=== PATIENT | male | born 1990 | race Caucasian/White ===

== ENCOUNTER 2018-03-06 15:55 | Emergency (ER) | payer MEDICAID, OTHER ==
--- NOTE | 2018-03-06 16:07 | EDPHY ---
H & P Stated Complaint: HI, ETOH Source: Patient, Family (Friend at bedside) Exam Limitations: Intoxication - Personal History Current Tetanus/Diphtheria Vaccine: Yes Current Tetanus Diphtheria and Acellular Pertussis (TDAP): Yes Tetanus Vaccine Date: 2014 - Medical/Surgical History Hx Asthma: No Hx Chronic Respiratory Disease: No Hx Diabetes: No Hx Cardiac Disease: No Hx Renal Disease: No Hx Cirrhosis: No Hx Alcoholism: Yes Hx HIV/AIDS: No Hx Splenectomy or Spleen Trauma: No Other PMH: schizoeffective, ETOH, - Social History Smoking Status: Heavy smoker Time Seen by Provider: 03/06/18 16:07 HPI/ROS: HPI: This is a 28-year-old male who presents with Chief Complaint: Homicidal ideation, alcoholism Location: psych Quality: Homicidal ideation Duration: Today Signs and Symptoms: + auditory hallucinations, no visual hallucinations, no suicidal ideation with a plan, + homicidal ideation, + paranoia Timing: Acute on chronic Severity: Moderate to severe Context: Patient has a history of schizoaffective disorder, alcoholism presents accompanied by his friend who is concerned about his aggressive behavior. He reports that he has been drinking "a lot of alcohol today." He reports to me that he "wants to kill everyone and take people out of this world. " He reports that he has felt like this for several days. He reports that everyone is "a piece of shit." He is originally from [place]. He does not take his psychiatric medications as prescribed as "they make me feel like shit. " He has had multiple admissions to [facility] last one being 1- 2 weeks ago. Patient reports that he feels that people are critical of him and that they persecute him and that he is not "worth anything." He does report that he hears voices telling him to harm other people and to kill other people. Friend at bedside reports that she is extremely concerned with patient and does not feel safe taking him at this time. Modifying Factors: none Comment: ROS: see HPI Constitutional: No fever, no chills, no weight loss Eyes: No blurred vision Respiratory: No shortness of breath, no cough Cardiovascular: No chest pain Gastrointestinal: No nausea, no vomiting, no diarrhea Genitourinary: No dysuria Extremities: No myalgias Neurologic: No weakness, no numbness Skin: No rashes Hematologic: No bruising, no bleeding MEDICAL/SURGICAL/SOCIAL HISTORY: Medical history: Schizoaffective, alcoholism. Surgical history: Mandible surgery for broken jaw secondary to trauma Social history: Heavy smoker. Family history noncontributory. CONSTITUTIONAL: Intoxicated forceful untidy adult white male, awake and alert, no obvious distress HEENT: Atraumatic and normocephalic, PERRL, EOMI. Nares patent. Tympanic membranes clear. Oropharynx clear, poor dentition. Airway patent. No lymphadenopathy. No meningismus. Cardiovascular: Normal S1/S2, mild tachycardia, regular rhythm, without murmur rub or gallop. PULMONARY/CHEST: Symmetrical and nontender. Clear to auscultation bilaterally. Good air movement. No accessory muscle usage. ABDOMEN: Soft, nondistended, nontender, no rebound, no guarding, no peritoneal signs, no masses or organomegaly. No CVAT. EXTREMITIES: 2/2 pulses, strength 5/5, no deformities, no clubbing, no cyanosis or edema. NEUROLOGICAL: no focal neuro deficits. GCS 15. SKIN: Warm and dry, no erythema. no rash. Good capillary refill. PSYCH: Poor eye contact,+ flight of ideas, relatively organized organized thought process, poor insight and judgment,+ auditory hallucinations, no visual hallucinations, no suicidal ideation with a plan, + homicidal ideation, + paranoia (Tae,Terra) Constitutional: Initial Vital Signs Temperature (C) 36.6 C 03/06/18 15:59 Heart Rate 103 H 03/06/18 15:59 Respiratory Rate 16 03/06/18 15:59 Blood Pressure 108/85 H 03/06/18 15:59 O2 Sat (%) 96 03/06/18 15:59 O2 Delivery Mode Room Air Allergies/Adverse Reactions: Sulfa (Sulfonamide Antibiotics) Allergy (Verified 03/06/18 16:24) Home Medications: Medication Instructions Recorded LaMICtal 03/06/18 traZODone 03/06/18 Medical Decision Making ED Course/Re-evaluation: 1615: Placed on M1 hold as the patient is gravely disabled and homicidal. Labs and UDS ordered. Given Zyprexa 5 mg. Breathalyzer upon arrival was 248 at 1600. 1705: Labs reviewed and grossly unremarkable. Urine drug screen is negative. Ethanol level is 330. 1830: Reassessed patient who is sleeping calmly. 0010: End of shift. Signed over to Dr. Steel pending mental health evaluation in morning and final disposition. This patient was seen under the supervision of my secondary supervising physician. I evaluated care for this patient independently. Discussed this patient with Dr. Martinez. (Jazmin Strong) 0630: No acute events overnight patient has been resting and sleeping. Receive Zyprexa and Haldol earlier in the evening. Here with history of schizophrenia, homicidal ideation and alcohol intoxication. Patient will need mental health evaluation this morning. Signed over to . (Chiki Steel ) Differential Diagnosis: Differential diagnosis includes but is not limited to intoxicant use, psychosis , stacy, homicidal ideation, schizoaffective disorder. (Jazmin Strong) Other Provider: Care assumed at 6:45 a.m. With plan for mental health evaluation of this patient with schizoaffective disorder who arrived with homicidal ideation. Initial alcohol level was 330. At 5:15 a.m. Breathalyzer is 0. 1044: Patient had mental health evaluation, recommendation of the admeasurer and Dr. Wilton Maldonado is to vacate the mental health hold and discharge the patient. He is not suicidal homicidal or psychotic at this time. Diagnosis of bipolar 2 disorder was confirmed by the admeasurer by contacting [facility]. (Leodan Wilson) - Data Points Laboratory Results: Laboratory Results 03/06/18 16:20 03/06/18 16:20 Medications Given: Discontinued Medications Olanzapine (Zyprexa Zydis) 5 mg PO EDNOW ONE Stop: 03/06/18 16:26 Last Admin: 03/06/18 16:33 Dose: 5 mg Departure - Departure Disposition: Home, Routine, Self-Care Clinical Impression: Bipolar 2 disorder Alcohol intoxication Qualifiers: Complication of substance-induced condition: uncomplicated Qualified Code(s): F10.920 - Alcohol use, unspecified with intoxication, uncomplicated Condition: Fair Instructions: Bipolar Disorder (ED), Alcohol Intoxication (ED) Referrals: [facility],. [Clinic] - As per Instructions
[2018-03-06] MEDS ORDERED: OLANZapine DISINTEGR 5 MG TAB PO ONE (16:25)
[2018-03-06 16:42] LABS: PLATELET COUNT 273 10^3/uL (150-400)
[2018-03-06] MEDS ORDERED: HALOPERIDOL LACT 5 MG/ML INJ ONE (16:45)
--- NOTE | 2018-03-07 07:15 | ASMTLCPROG ---
Notes Note: Notes: As pt is on M1, obtained collateral from Brian at [facility] who confirmed pt was originally diagnosed with Bipolar II D/O at age 19; has Alcohol Use Disorder, chronic, severe; and PTSD. Prescriber is Genet Martinez MD at [facility]. Reeler Operator is Ligia Mueller. Pt seen by Dr. Martinez on 01/31/18. Home meds include Lamictal 25 mg and Trazodone 50 mg. No follow up appt noted as scheduled. Pt had one prior psych hospitalization in [place] where he is originally from. Pt has baseline of regular suicidal ideation. Date Signed: 03/07/2018 07:14 AM Electronically Signed By:Saurabh Alva
[2018-03-07 10:57] VITALS: BP 121/81
--- NOTE | 2018-03-07 13:04 | ASMTTLCEVL ---
[facility] Evaluation - Basic Information Evaluation Start Date and 03/07/2018 10:00 AM Time Hospital Status Answers: M1 Hold 72-hr M1 Hold Start Date 03/06/2018 04:15 PM and Time Patient statement Notes: My girlfriend brought me here last night. Im feeling much better this morning. Im not feeling suicidal or homicidal. 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 Narrative Notes: Pt is a 25 yo, single, homeless, employed, male, with known history of Bipolar II Disorder; Alcohol Use Disorder, Severe; and PTSD, self-presented to [facility] ED last night on a voluntary basis initially, accompanied by his girlfriend Christopher. Pt was then placed on M1 hold by ED provider which noted: Patient has a history of schizoaffective disorder, presents with homicidal thoughts, aggressive behavior and medication non-compliance. Patient is having command auditory hallucinations that command him to kill people who are critical of him. He is very paranoid. Pts BAL upon arrival was .330 at 1620 hrs. UDS results were negative for all tested substances. Pt was administered Zyprexa Zydis 5 mg PO at 1633 hrs. He then slept throughout the majority of the night. Upon medical clearance and breathalizer level at .0 at 0515, evaluation was conducted. Pt appeared unclean, disheveled and unkempt. He was in good spirits and reported Im feeling much better this morning. Pt denied currently having any hallucinations, denied suicidal/homicidal ideation/intent/plans to harm self/others. He appeared polite, cooperative and lucid in thought content and process. Pt is an open client at [facility], under the psychiatric care of Genet Martinez MD and Ligia Mueller Model Builder. He last saw Dr. Martinez on 01/31/18. Diagnosis History Notes: Bipolar II Disorder; Alcohol Use Disorder, Severe; and PTSD. Prior suicide attempts Notes: Pt denied any past history of suicide attempts. Prior hospitalizations Notes: Pt reported one prior psychiatric hospitalization at [facility] for 3 days when he was 19 yo. He was diagnosed with Bipolar II Disorder at that time. Treatment Responses Notes: Pt has history of continued heavy alcohol use and medication non-compliance. History of violence Notes: Pt denied any past history of violence toward others, however, MHP report indicated pt can become aggressive when intoxicated and/or when not taking his meds. Therapist: Ligia Mueller [facility] Care Coord Psychiatrist: Genet Martinez MD - [facility] Medications (name, dosage, route, freq uency) Notes: Lamictal 25 mg PO TID; Trazodone 50 mg PO HS. Pt stated he has been medication compliant. Allergies/Reaction Notes: Sulfa. Sleep Notes: Pt reported getting adequate amount of sleep when not drinking. Appetite Notes: Reported as good. Medical/Surgical history Notes: Significant for having mandible surgery for a broken jaw secondary to trauma. Substance use history (frequency, intensity, his tory, duration) Notes: Pt reported first trying alcohol at age 15. He reported his drinking became problematic 2 years ago. He reported having 3-4 periods of being sober about a month during times when he had a better job. Currently, pt reported drinking 2 pints of whisky daily. He stated he drank about half that amount yesterday. BAL was .330 at 1620 hrs yesterday. UDS negative for all tested substances. Pt reported having first tried marijuana at age 6. He reported his last use of marijuana was about 3 months ago. He reported he first tried methamphetamine at age 19. He reported his last use of meth was in August 2017. He denied any other illicit substance use history. Family composition Notes: Pt reported that his father is in residential and he does not know about where his mother is or if still living. He reported being an only child. Need for family Answers: No participation in patient's care Family psychiatric/substance abuse history Notes: None reported by pt. Developmental history Notes: Pt reported growing up in [place], [place]. He moved to [place] 2 years ago. Pt denied any childhood history of TBIs, LOC or concussions. He reported that there was emotional abuse by his parents and felt his parents wouldnt emotionally build me up. Pt otherwise denied any childhood history of physical or sexual abuse/trauma. Abuse concerns Answers: Past Marital status/children Notes: Pt is single, never , no dependents. He reported starting to date a new girlfriend named Christopher about 2-3 months ago. Living situation Notes: Pt is homeless. Sexual history/orientation Notes: Active. Heterosexual. Peer support/family strengths Notes: Pt stated that his boss, Omkar Chadwick, and his M[facility] providers are his supports. Education level/history Notes: Pt reported graduating from [employer] in [place], [place]. 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 Notes: None. Legal Notes: Pt reported having a possession arrest 5 years ago. Holiness/Spiritual Notes: Pt stated I believe in God. Leisure Notes: Pt reported he enjoys riding bicycles and fishing. Collateral Notes: Collateral obtained from [facility]. [facility] Evaluation - Mental Status Exam Appearance: Answers: Unclean Unkempt Disheveled Mood: Answers: Euthymic Affect: Answers: Appropriate Calm Cheerful Congruent w/ Mood Behavior: Answers: Appropriate Cooperative Speech: Answers: Relevant Logical Clear Coherent Thought Process: Answers: Organized Oriented Alert Goal Oriented Insight: Answers: Fair Judgement: Answers: Fair Manic Signs/Symptoms Answers: Impulsivity Hallucinations: Answers: None Current Stage of Change Answers: Precontemplation Relapse Pt reported to have Answers: No suicidal/self-injuring ideation/behavior? Pt reported to be making Answers: No suicidal/self-injuring threats? Pt reported to have Answers: No aggression/assault ideation/behavior? Pt reported to be making Answers: No aggression/assault threats? Pt exhibits inability to Answers: No care for self/grave disability? Ideation/behavior is Answers: No chronic? Patient has a specific Answers: No plan? Pt has access to means to Answers: No execute the plan? Ideation involves Answers: No serious/lethal intent? Ideation has Answers: No delusional/hallucinatory content? History of Answers: Yes suicidal/self-injuring ideation, behavior, or threats? History of Answers: Yes aggressive/assaultive ideation, behavior, or threats? History of serious Answers: No physical harm to self/others while in treatment setting? [facility] Evaluation - Suicide/Homicide Risk Suicide Risk Factors: Answers: Alcohol/Heavy Drug Use Bipolar Disorder History of Abuse Impulsivity Inadequate Social Support Lack of Social Support Single Unstable Living Situation Homicide/violence risk Answers: None factors: Current Suicidal Answers: No Ideation? Current Suicidal Ideation Answers: No in the Past 48 Hours? Current Suicidal Ideation Answers: No in the Past Month? Current Suicidal Answers: No Ideation, Worst Ever? Suicide Internal Answers: Absence of Psychosis Protective Factors: Que with Stress Suicide External Answers: Positive Therapeutic Protective Factors: Relationships Ranking of patient's Answers: Low suicidal risk: Ranking of patient's Answers: Low homicidal risk: TLC Evaluation - Wrap-up BDI Total Score: 6 BDI Question #2 Score: 0 BDI Question #9 Score: 0 BSS Total Score: 0 AXIS I Diagnosis (include DSM-V and ICD-10 codes), must also be entered in [employer], which is the source of truth. Notes: BIPOLAR II DISORDER, MODERATE 296.89 (F31.81) ALCOHOL INTOXICATION, WITH USE DISORDER, SEVERE 303.00 (F10.229) POSTTRAUMATIC STRESS DISORDER 309.81 (F43.10) BY HISTORY In consultation with [facility] ED physician, Leodan Wilson MD, he concurred that pt does not appear to meet 27-65 criteria requiring psychiatric hospitalization as pt does not appear to be an imminent risk of harm to self/others/gravely disabled due to a mental illness condition. Dr. Wilson provided verbal order read back vacating M1 hold at 1045 hrs. Evaluation End Date and 03/07/2018 11:15 AM Time (HH:DAVID): Date Signed: 03/07/2018 01:03 PM Electronically Signed By:Saurabh Alva
--- NOTE | 2018-03-07 13:05 | ASMTTCLDSP ---
TLC Discharge Disposition Disposition: Answers: Discharge If Answers: Yes DISCHARGED: Patient/family given suicide hotline info & SAMHSA brochure? Disposition Notes: Notes: Pt stated commitment or ability to keep self safe, denied thoughts of self harm or harm to others. 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 Pt was given local hotline information and SAMHSA brochure After an Attempt and encouraged to follow up with MHP. Discharge Concerns/Recommendations: Notes: In consultation with [facility] ED physician, Leodan Wilson MD, he concurred that pt does not appear to meet 27-65 criteria requiring psychiatric hospitalization as pt does not appear to be an imminent risk of harm to self/others/gravely disabled due to a mental illness condition. Dr. Wilson provided verbal order read back vacating M1 hold at 1045 hrs. Was patient given the Answers: Not applicable Inpatient Behavioral Health Prohibited Belongings List while in the ED? Psychiatrist vacating M1 Leodan Wilson MD Hold: Date and time M1 hold 03/07/2018 10:45 AM vacated (time format is hh:mm): Type of Hold: Answers: M1/72-hour Hold Hold initiated by: Answers: ED Physician Date Signed: 03/07/2018 01:05 PM Electronically Signed By:Saurabh Alva
== END 2018-03-07 10:57 | disposition home or self-care (01) ==
DX: F31.81 Bipolar II disorder (principal); F10.920 Alcohol use, unspecified with intoxication, uncomplicated; F17.200 Nicotine dependence, unspecified, uncomplicated
CPT/HCPCS: 80305; G0480; J1630

== ENCOUNTER 2018-06-04 20:02 | Emergency (ER) | payer MEDICAID, OTHER ==
--- NOTE | 2018-06-04 20:47 | EDPHY ---
H & P Smoking Status: Heavy smoker Time Seen by Provider: 06/04/18 20:35 HPI/ROS: HPI Suicidal and homicidal thoughts. 28-year-old male by private vehicle. He was brought in by his friend. He has a history of schizoaffective disorder. He has been drinking alcohol tonight. He has been making homicidal threats. Stating everybody needs to . He told his friend he was also feeling suicidal. On my evaluation the patient states he has been drinking. When I asked him if he is suicidal or homicidal he just replies "maybe". No history of trauma or assault. ROS: Constitutional: No fever, no chills. No weakness. Eyes: No discharge. No changes in vision. ENT: No sore throat. No nasal congestion or rhinorrhea. Respiratory: No cough. No shortness of breath. Cardiac: No chest pain, no palpitations. Gastrointestinal: No abdominal pain, no vomiting, no diarrhea. Genitourinary: No hematuria. No dysuria or increased frequency with urination. Musculoskeletal: No back pain. No neck pain. No myalgias or arthralgias. Skin: No rashes. Neurological: No headache. No focal weakness or altered sensation. Past medical history: Schizoaffective disorder, alcohol abuse. Social history: Alcohol abuse. Here currently alone. Nonsmoker. Denies IV drugs and street drugs. Physical Exam: General Appearance: Alert, mildly agitated with an aggressive demeanor. This patient is responding to questions appropriately and in full sentences. This patient appears well-hydrated and well-nourished. Eyes: Pupils equal and round no pallor or injection. No lid edema, erythema or injection. Respiratory: There are no retractions, lungs are clear to auscultation with good air movement bilaterally. Cardiovascular: Regular rate and rhythm. No murmur. Gastrointestinal: Abdomen is soft and nontender, no masses, bowel sounds normal. No focal tenderness at McBurney's point. No Sampson sign. Neurological: Motor sensory function is grossly intact. Cranial nerves are normal. Gait is normal. Skin: Warm and dry, no rashes. Musculoskeletal: Neck is supple and nontender. Extremities are symmetrical. All joints range without pain or impingement. Psychiatric: As above. No depression. Database: EKG: Imaging: Procedures: Emergency department course: Triage vital signs reviewed. He is mildly tachycardic. Triage vital signs otherwise normal. I placed him on a detainer at 8:45 p.m.. Behavioral Health is aware. Appropriate blood work and urine tox screens ordered. 9:30 p.m., the patient is awaiting behavioral health evaluation. Care turned over to Dr. Igor Reyes at this time. Differential Diagnosis: The differential diagnosis on this patient includes but is not limited to suicidal ideation, homicidal ideation, alcohol intoxication. This represents a partial list of diagnoses considered. These considerations are based on history , physical exam, past history, reassessment and diagnostic testing. (Adina Watt) Constitutional: Initial Vital Signs Temperature (C) 36.6 C 06/04/18 20:06 Heart Rate 104 H 06/04/18 20:06 Respiratory Rate 16 06/04/18 20:06 Blood Pressure 133/89 H 06/04/18 20:06 O2 Sat (%) 97 06/04/18 20:06 O2 Delivery Mode Room Air Allergies/Adverse Reactions: Sulfa (Sulfonamide Antibiotics) Allergy (Verified 03/06/18 16:24) Home Medications: Medication Instructions Recorded LaMICtal 03/06/18 Medical Decision Making ED Course/Re-evaluation: The patient is awaiting sobriety and evaluation. The 10:40 p.m. The patient is sober. He no longer endorses homicidal ideation. He never had any specific people in mind he just states that when he gets intoxicated he feels like the whole world should . He does not have any specific plans. He was never suicidal. He states that he is not typically of difficulty with alcohol withdrawal. I will sent him to the alcohol recovery Center with Librium prepack to used if needed. He is on a detainer. I will lift this. He was somewhat hesitant to leave because he would likes being here in the ER where he can sleep in a warm bed but is also agreeable to going to the arc. (Igor Reyes) Differential Diagnosis: Partial list of the Differential diagnosis considered include but were not limited to; alcohol intoxication, homicidal, suicidal, and although unlikely based on the history and physical exam, I also considered infection, head injury. (Igor Reyes) - Data Points Laboratory Results: Laboratory Results 06/04/18 20:50 06/04/18 20:50 Medications Given: Discontinued Medications Chlordiazepoxide (Librium 25 Mg Prepack#6) 1 btl TAKEHOME EDNOW ONE Stop: 06/04/18 22:44 Last Admin: 06/04/18 22:57 Dose: 1 btl Departure - Departure Disposition: Home, Routine, Self-Care Clinical Impression: Alcohol abuse Condition: Fair Instructions: Chlordiazepoxide (By mouth), Alcohol Intoxication (ED) Referrals: NONE *PRIMARY CARE P,. [Primary Care Provider] - As per Instructions [facility],. [Clinic] - As per Instructions
[2018-06-04 21:01] LABS: PLATELET COUNT 221 10^3/uL (150-400)
[2018-06-04] MEDS ORDERED: CHLORDIAZEPOXIDE 25MG PREPK#6 BTL TAKEHOME ONE (22:43)
[2018-06-04 23:11] VITALS: BP 118/74
== END 2018-06-04 23:11 | disposition home or self-care (01) ==
DX: R45.851 Suicidal ideations (principal); F10.920 Alcohol use, unspecified with intoxication, uncomplicated; F25.9 Schizoaffective disorder, unspecified; F17.200 Nicotine dependence, unspecified, uncomplicated
CPT/HCPCS: 80305; G0480